=== PATIENT | male | born 1975 | race Asian ===

== ENCOUNTER 2018-02-03 14:24 | Inpatient (IN) | payer OTHER ==
--- NOTE | 2018-02-03 14:36 | PDOC ---
Rapid Medical Evaluation Time Seen by Provider: 02/03/18 14:30 Medical Evaluation: 02/03/18 14:30 I have performed a brief in-person evaluation of this patient. The patient presents with a chief complaint of: sent to ed for further evaluation after cervical spine disc abnormality on MRI Pertinent physical exam findings: NAD even and unlabored breathing +tenderness in mid cervical spine I have ordered the following: labs, iv access, took analgesia at 8m The patient will proceed to the ED for further evaluation.
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
[2018-02-03 15:36] LABS: BASO % 0.6 % (0-2.0); HEMATOCRIT 37.7 % (35.4-49); HEMOGLOBIN 11.9 GM/dL (11.7-16.9); LYMPH % 16.3 % (8-40); MCHC 31.6 g/dl (32.0-35.9); MEAN CELL VOLUME 59.7 fl (80-96); MEAN PLT VOLUME 8.7 fl (7.5-11.1); MONO % 4.1 % (3.8-10.2); PLATELET COUNT 263 K/MM3 (134-434); RBC 6.31 M/mm3 (4.00-5.60); RDW 14.8 % (11.9-15.9); WHITE BLOOD COUNT 14.7 K/mm3 (4.0-10.0)
[2018-02-03 15:43] LABS: MCH 18.9 pg (25.7-33.7)
[2018-02-03 15:50] LABS: INR 1.04 (0.82-1.09); PROTHROMBIN TIME (PATIENT) 11.7 SEC (9.7-13.0)
[2018-02-03 15:53] LABS: ACTIVATED PTT 27.1 SECONDS (26.9-34.4)
[2018-02-03 15:54] LABS: ALBUMIN 4.2 g/dl (3.4-5.0); ANION GAP 9 (8-16); CALCIUM 9.1 mg/dL (8.5-10.1); CHLORIDE 106 mmol/L (98-107); CO2 25 mmol/L (21-32); GLUCOSE,RANDOM 92 mg/dL (74-106); SODIUM 140 mmol/L (136-145)
[2018-02-03 15:59] LABS: ALK PHOS 60 U/L (45-117); BILIRUBIN,TOTAL 0.7 mg/dL (0.2-1.0); BLOOD UREA NITROGEN 20 mg/dL (7-18); CREATININE 1.2 mg/dL (0.7-1.3); SGOT/AST 16 U/L (15-37); SGPT/ALT 40 U/L (12-78)
--- NOTE | 2018-02-03 16:28 | EKG ---
Test Reason : Blood Pressure : / mmHG Vent. Rate : 101 BPM Atrial Rate : 101 BPM P-R Int : 152 ms QRS Dur : 090 ms QT Int : 346 ms P-R-T Axes : 036 -13 005 degrees QTc Int : 448 ms SINUS TACHYCARDIA POSSIBLE LEFT ATRIAL ENLARGEMENT LEFT VENTRICULAR HYPERTROPHY ABNORMAL ECG NO PREVIOUS ECGS AVAILABLE Confirmed by MADDY GOMES, CRISTINE ([id number]) on 02/03/2018 4:27:47 PM Referred By: Confirmed By:CRISTINE CASTAÑEDA MD
--- NOTE | 2018-02-03 16:30 | PDOC ---
Attending Attestation - Resident Resident Name: Timmy Bagley - ED Attending Attestation I have performed the following: I have examined & evaluated the patient, The case was reviewed & discussed with the resident, I agree w/resident's findings & plan - HPI HPI: 02/03/18 16:28 42y/o M diagnosed with cervical disc disease on outpatient imaging p/w worsening pain and weakness to L side. - Physicial Exam PE: 02/03/18 16:28 VSS, tachy 2/2 pain but ambulating in ED neuro exam as noted vascular intact - Medical Decision Making 02/03/18 16:29 42y/o M with intractable pain and intermittent weakness 2/2 known cervical disc disease. labs, pain control seen in ED with Dr. Marks of [facility] at bedside, who has reviewed prior imaging. will proceed with admission for OR Heart Score/ECG Review #1 General ECG Interpretation: Sinus Rhythm, Normal Rate (101), Normal Intervals ( qtc 448), No acute ischemic changes
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
[2018-02-03] MEDS ORDERED: morphine SULFATE 4 MG/ML VIAL IVPUSH PRN ×4 (18:22→18:38)
[2018-02-03] MEDS ORDERED: diazePAM 2 MG TABLET PO PRN (18:22)
[2018-02-03] MEDS ORDERED: ACETAMINOPHEN 325 MG TABLET (FP) PO PRN (18:42)
[2018-02-03 18:50] LABS: ANISOCYTOSIS 2+
[2018-02-03 18:51] LABS: PLATELET ESTIMATE ADEQUATE; TARGET CELLS FEW
[2018-02-03] MEDS ORDERED: morphine SULFATE 4 MG/ML VIAL ONE (18:59)
--- NOTE | 2018-02-03 19:13 | HP ---
CHIEF COMPLAINT: Neck, left arm, left leg pain and weakness PCP: [facility] HISTORY OF PRESENT ILLNESS: Pt is a 42 y/o M who presents to the ED sent by Vee for pain and weakness of the neck, LUE, LLE. Pt describes 3 weeks of worsening symptoms. Pt describes burning, tingling, numbness in LUE and LLE as well as weakness in LUE. He unintentionally dropped yogurt from his left hand. He has also had neck pain and point tenderness. He was seen as an outpt by several doctors at multiple facilities and no intervention was done. He had unremarkable MRI of the brain. C-spine MRI was significant for severe foraminal stenosis of C6-C7. Pt had a steroid injection. He was given a prednisone taper. Pt continued having symptoms. Eventually, he was seen by Dr. Baxter who evaluated him and sent him to ED for admission for elective procedure. ER course was notable for: (1) WBC 14.7 (2) EKG sig for LVH and sinus tachy (3) Recent Travel: denies PAST MEDICAL HISTORY: denies PAST SURGICAL HISTORY: denies Social History: Smoking: denies Alcohol: occasional Drugs: denies Family History: denies Allergies No Known Allergies Allergy (Verified 02/03/18 14:31) HOME MEDICATIONS: Home Medications Medication Instructions Recorded Gabapentin 400 mg PO PRN PRN 02/03/18 REVIEW OF SYSTEMS CONSTITUTIONAL: Absent: fever, chills, diaphoresis, generalized weakness, malaise, loss of appetite, weight change HEENT: Absent: rhinorrhea, nasal congestion, throat pain, throat swelling, difficulty swallowing, mouth swelling, ear pain, eye pain, visual changes CARDIOVASCULAR: Absent: chest pain, syncope, palpitations, irregular heart rate, lightheadedness , peripheral edema RESPIRATORY: Absent: cough, shortness of breath, dyspnea with exertion, orthopnea, wheezing, stridor, hemoptysis GASTROINTESTINAL: Absent: abdominal pain, abdominal distension, nausea, vomiting, diarrhea, constipation, melena, hematochezia GENITOURINARY: Absent: dysuria, frequency, urgency, hesitancy, hematuria, flank pain, genital pain MUSCULOSKELETAL: Absent: myalgia, arthralgia, joint swelling, back pain, neck pain SKIN: Absent: rash, itching, pallor HEMATOLOGIC/IMMUNOLOGIC: Absent: easy bleeding, easy bruising, lymphadenopathy, frequent infections ENDOCRINE: Absent: unexplained weight gain, unexplained weight loss, heat intolerance, cold intolerance NEUROLOGIC: focal weakness or paresthesias LUE, LLE Absent: headache, dizziness, unsteady gait, seizure, mental status changes, bladder or bowel incontinence PSYCHIATRIC: Absent: anxiety, depression, suicidal or homicidal ideation, hallucinations. PHYSICAL EXAMINATION Vital Signs - 24 hr 02/03/18 02/03/18 14:31 17:36 Temperature 98.6 F 98.0 F Pulse Rate 120 H 118 H Respiratory 19 19 Rate Blood Pressure 166/105 152/100 O2 Sat by Pulse 100 Oximetry (%) GENERAL: Awake, alert, and fully oriented, in no acute distress. HEAD: Normal with no signs of trauma. EYES: Pupils equal, round and reactive to light, extraocular movements intact, sclera anicteric, conjunctiva clear. No lid lag. EARS, NOSE, THROAT: oropharynx clear without exudates. Moist mucous membranes. NECK: ROM limited by pain. Point tenderness of C-spine through T3, supple without lymphadenopathy, JVD, or masses. LUNGS: Breath sounds equal, clear to auscultation bilaterally. No wheezes, and no crackles. No accessory muscle use. HEART: Regular rate and rhythm, normal S1 and S2 without murmur, rub or gallop. ABDOMEN: Soft, nontender, not distended, normoactive bowel sounds, no guarding, no rebound, no masses. No hepatomegaly or splenomegaly. MUSCULOSKELETAL: range of motion limited by pain. No bony deformities or tenderness. No CVA tenderness. UPPER EXTREMITIES: 2+ pulses, warm, well-perfused. No cyanosis. No clubbing. No peripheral edema. LOWER EXTREMITIES: 2+ pulses, warm, well-perfused. No calf tenderness. No peripheral edema. NEUROLOGICAL: Cranial nerves II-XII intact. Normal speech. alterered sensation of LUE, LLE. Strength 4/5 LUE, LLE. 5/5 RUE, RLE. Reflexes intact. PSYCHIATRIC: Cooperative. Good eye contact. Appropriate mood and affect. SKIN: Warm, dry, normal turgor, no rashes or lesions noted, normal capillary refill. Laboratory Results - last 24 hr 02/03/18 02/03/18 02/03/18 14:54 14:54 14:54 WBC 14.7 H RBC 6.31 H Hgb 11.9 Hct 37.7 MCV 59.7 L MCH 18.9 L MCHC 31.6 L RDW 14.8 Plt Count 263 MPV 8.7 Neutrophils % 79.0 Lymphocytes % 16.3 Monocytes % 4.1 Eosinophils % 0.0 Basophils % 0.6 Nucleated RBC % 0 PT with INR 11.70 INR 1.04 PTT (Actin FS) 27.1 Sodium 140 Potassium 4.0 Chloride 106 Carbon Dioxide 25 Anion Gap 9 BUN 20 H Creatinine 1.2 Creat Clearance w eGFR > 60 Random Glucose 92 Calcium 9.1 Total Bilirubin 0.7 AST 16 ALT 40 Alkaline Phosphatase 60 Total Protein 8.0 Albumin 4.2 Blood Type Antibody Screen 02/03/18 15:20 WBC RBC Hgb Hct MCV MCH MCHC RDW Plt Count MPV Neutrophils % Lymphocytes % Monocytes % Eosinophils % Basophils % Nucleated RBC % PT with INR INR PTT (Actin FS) Sodium Potassium Chloride Carbon Dioxide Anion Gap BUN Creatinine Creat Clearance w eGFR Random Glucose Calcium Total Bilirubin AST ALT Alkaline Phosphatase Total Protein Albumin Blood Type O POSITIVE Antibody Screen Negative ASSESSMENT/PLAN: Pt is a 42 y/o M with no PMH who presents with sympomatic cervical spinal stenosis diagnosed on out pt MRI. #Spinal stenosis -for surgery tomorrow -NPO after midnight -CBC, CMP, CXR -Valium, Morphine, Prednisone taper -Cont amytriptiline #FEN -NS @ 100 -lytes wnl -NPO after midnight #PPx -hold Hep in anticipation of surgery #Dispo -For surg tomorrow Anuj Nelson MD PGY-1 IM Visit type - Emergency Visit Emergency Visit: Yes ED Registration Date: 02/03/18 Care time: The patient presented to the Emergency Department on the above date and was hospitalized for further evaluation of their emergent condition. - New Patient This patient is new to me today: Yes Date on this admission: 02/03/18 - Critical Care Critical Care patient: No Hospitalist Screening - Colonoscopy Questionnaire Colonoscopy Questionnaire: Colonoscopy Questionnaire - Patient: 50 - 75 years old and never had a screening colonoscopy: Unknown History of colon or rectal polyps, or CA: Unknown History of IBD, Crohn's disease or UC: Unknown History of abdominal radiation therapy as a child: Unknown - Relative: 1 with colon or rectal CA, or polyps at age 60 or younger: Unknown Colon or rectal CA diagnosed at age 45 or younger: Unknown Multiple relatives with colon or rectal CA: Unknown - Outcome: Screening Result: Negative Screen
[2018-02-03] MEDS ORDERED: HEPARIN NA (PORCINE) 5,000 UNITS/ML 1ML VIAL SQ SCH (22:00)
[2018-02-03] MEDS ORDERED: AMITRIPTYLINE HCL 25 MG TABLET (FP) PO SCH (22:00)
[2018-02-03] MEDS: predniSONE 10 MG TABLET (UD) PO SCH (22:40)
[2018-02-03 23:51] VITALS: BMI 26.2
[2018-02-04] MEDS ORDERED: SODIUM CHLORIDE 1,000 ML IV SCH (00:01)
[2018-02-04] MEDS ORDERED: CHLORHEXIDINE GLUCONATE 4% CLEANSER FOR DECOLONIZATION TP ONE (07:00)
[2018-02-04 07:51] LABS: BASO % 0.5 % (0-2.0); EOS % 0.2 % (0-4.5); HEMATOCRIT 37.1 % (35.4-49); HEMOGLOBIN 11.7 GM/dL (11.7-16.9); LYMPH % 18.3 % (8-40); MCHC 31.5 g/dl (32.0-35.9); MEAN CELL VOLUME 59.8 fl (80-96); MEAN PLT VOLUME 8.9 fl (7.5-11.1); MONO % 5.3 % (3.8-10.2); NEUT % 75.7 % (42.8-82.8); PLATELET COUNT 240 K/MM3 (134-434); RBC 6.21 M/mm3 (4.00-5.60); RDW 14.8 % (11.9-15.9); WHITE BLOOD COUNT 11.5 K/mm3 (4.0-10.0)
[2018-02-04 07:57] LABS: MCH 18.8 pg (25.7-33.7)
[2018-02-04 08:04] LABS: ACTIVATED PTT 28.2 SECONDS (26.9-34.4); INR 1.09 (0.82-1.09); PROTHROMBIN TIME (PATIENT) 12.3 SEC (9.7-13.0)
[2018-02-04 08:13] LABS: ALBUMIN 3.8 g/dl (3.4-5.0); ANION GAP 7 (8-16); BILIRUBIN,TOTAL 0.6 mg/dL (0.2-1.0); BLOOD UREA NITROGEN 21 mg/dL (7-18); CHLORIDE 106 mmol/L (98-107); CO2 25 mmol/L (21-32); GLUCOSE,RANDOM 85 mg/dL (74-106); MAGNESIUM 2.2 mg/dL (1.8-2.4); PHOSPHOROUS 3.3 mg/dL (2.5-4.9); POTASSIUM 4.1 mmol/L (3.5-5.1); SGOT/AST 13 U/L (15-37); SGPT/ALT 33 U/L (12-78); SODIUM 138 mmol/L (136-145); TOT PROT 7.2 g/dl (6.4-8.2)
[2018-02-04 08:14] LABS: ALK PHOS 54 U/L (45-117); CALCIUM 8.5 mg/dL (8.5-10.1)
[2018-02-04] MEDS: predniSONE 10 MG TABLET (UD) PO SCH ×2 (08:40→09:24)
[2018-02-04] MEDS ORDERED: GENTAMICIN SO4 80 MG/2 ML VIAL ONE (10:04)
[2018-02-04] MEDS ORDERED: THROMBIN (BOVINE) 20,000 UNIT VIAL TP ONE (10:04)
[2018-02-04] MEDS ORDERED: BUPIVACAINE HCL/PF 0.5% (5MG/ML) 10 ML VIAL ONE (10:13)
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
[2018-02-04] MEDS ORDERED: MIDAZOLAM HCL 2 MG/2 ML SINGLE DOSE VIAL ONE ×2 (10:33→12:29)
[2018-02-04] MEDS ORDERED: PROPOFOL 20 ML ONE (10:34)
[2018-02-04] MEDS ORDERED: ROCURONIUM BROMIDE 50 MG/5 ML VIAL ONE (10:34)
[2018-02-04] MEDS ORDERED: DEXAMETHASONE SOD PHOSPHATE 4 MG/1 ML VIAL ONE (10:50)
[2018-02-04] MEDS ORDERED: ONDANSETRON 4 MG/2 ML VIAL ONE (10:50)
[2018-02-04] MEDS ORDERED: SODIUM CHLORIDE 0.9% P/F 10 ML VIAL IJ ONE ×2 (10:58→11:00)
[2018-02-04] MEDS ORDERED: ceFAZolin SODIUM 1 GM VIAL ONE ×2 (10:58→17:53)
[2018-02-04] MEDS ORDERED: ceFAZolin SODIUM 1 GM VIAL IVPB ONE (10:59)
[2018-02-04] MEDS ORDERED: VANCOMYCIN 1,000 MG VIAL (RESTRICTED TO ID ONLY) ONE (11:00)
[2018-02-04] MEDS ORDERED: VANCOMYCIN 1,000 MG VIAL (RESTRICTED TO ID ONLY) IVPB ONE (11:02)
[2018-02-04] MEDS ORDERED: LIDOCAINE HCL 1%, 10 MG/ML (50 mL VIAL) IJ ONE (11:08)
[2018-02-04] MEDS ORDERED: NEOSTIGMINE METHYLSULFATE 0.5 MG/ML - 10 ML MDV ONE (11:59)
[2018-02-04] MEDS ORDERED: GLYCOPYRROLATE 0.2 MG/1 ML VIAL ONE (11:59)
[2018-02-04] MEDS ORDERED: LIDOCAINE HCL/PF 2% SDV 5ML VIAL ONE (12:09)
[2018-02-04] MEDS ORDERED: ACETAMINOPHEN INJECTION 100 ML IVPB ONE (12:18)
[2018-02-04] MEDS ORDERED: METOPROLOL TARTRATE 5 MG/5 ML VIAL ONE (12:27)
[2018-02-04] MEDS ORDERED: ONDANSETRON 4 MG/2 ML VIAL IVPUSH PRN ×3 (12:34→22:19)
[2018-02-04] MEDS ORDERED: LACTATED RINGERS SOLUTION 1,000 ML IV SCH ×2 (12:45→13:00)
--- NOTE | 2018-02-04 12:50 | OP ---
Operative Note - Note: Operative Date: 02/04/18 Pre-Operative Diagnosis: Cervical radiculopathy, myelopathic Operation: C5/6 corpectomy, decompression, fusion Post-Operative Diagnosis: Same as Pre-op Surgeon: Jay Baxter Medical Officer Psychiatry: Alberto Ramos Anesthesiologist/TUNNEL ELASTIC OPERATOR LOCKSTITCH: Rigoberto Moss Anesthesia: General Estimated Blood Loss (mls): 50 Drains & Tubes with Location: YESI Drains, Volume Out (mls): 500 (decker ) Fluid Volume Replaced (mls): 500 Operative Report Dictated: Yes
[2018-02-04] MEDS ORDERED: NALOXONE HCL 0.4 MG/ML VIAL ONE (12:51)
--- NOTE | 2018-02-04 12:51 | SURG ---
Surgery Moss Picker Note Moss Picker: Alberto Ramos PA-C Date of Service: 02/04/18 Diagnosis: Cervical radiculopathy, meylopathic Procedure: C5/6 corpectomy, decompression, fusion I was present for the entirety of the operative procedure. For further detail, please refer to operative report. Visit type - Case Type Case Type: ED Admission - New patient This patient is new to me today: Yes Date on this admission: 02/04/18
[2018-02-04] MEDS ORDERED: GABAPENTIN 400 MG CAPSULE (FP) PO PRN (12:53)
[2018-02-04] MEDS ORDERED: NALOXONE HCL 0.4 MG/ML VIAL IVPUSH ONE (13:00)
[2018-02-04] MEDS ORDERED: morphine SULFATE 4 MG/ML VIAL IVPUSH PRN (14:15)
[2018-02-04] MEDS ORDERED: diazePAM 2 MG TABLET PO PRN (14:15)
--- NOTE | 2018-02-04 15:43 | PN ---
Teaching Attending Note Name of Resident: Anuj Nelson ATTENDING PHYSICIAN STATEMENT I saw and evaluated the patient. I reviewed the resident's note and discussed the case with the resident. I agree with the resident's findings and plan as documented with exceptions below. SUBJECTIVE: Patient seen and examined. in PACU, anxious, asking to remove his C-collar,c/o pain at surgical site. OBJECTIVE: Vital Signs Period Temp Pulse Resp BP Sys/Dang Pulse Ox Last 24 Hr 97.5 F-98.3 F 70-118 8-20 123-152/74-100 94-100 Intake & Output 02/01/18 02/02/18 02/03/18 02/04/18 23:59 23:59 23:59 23:59 Intake Total 200 1000 Output Total 550 Balance 200 450 Weight 162 lb 4 oz General; anxious but no acute distress in bed Neck: C-collar Neuro: moves all extremities freely but declines full exam as 'tired'. Home Medication List Medication Instructions Recorded Confirmed Type Gabapentin 400 mg PO PRN PRN 02/03/18 02/03/18 History Active Medications Generic Name Dose Route Start Last Admin Trade Name Freq PRN Reason Stop Dose Admin Acetaminophen 650 mg 02/04/18 14:15 Tylenol - PO Q6H PRN PAIN LEVEL 1 - 3 Amitriptyline HCl 50 mg 02/04/18 22:00 Elavil - PO HS ESTEFANI Diazepam 2 mg 02/04/18 14:15 Valium - PO Q8H PRN ANXIETY Fentanyl 50 mcg 02/04/18 14:15 02/04/18 14:15 Sublimaze Injection - IVPUSH 50 mcg [id number] PRN Administration PAIN-PACU ORDER X 4 DOSES ONLY Gabapentin 400 mg 02/04/18 12:53 Neurontin - PO PRN PRN PAIN Cefazolin Sodium 1 gm/ 50 mls @ 100 mls/hr 02/04/18 18:00 Dextrose IVPB 02/05/18 02:29 Q8H-IV ESTEFANI Lactated Ringer's 1,000 mls @ 125 mls/hr 02/04/18 13:00 Lactated Ringers Solution IV ASDIR ESTEFANI Sodium Chloride 1,000 mls @ 100 mls/hr 02/04/18 14:15 Normal Saline - IV ASDIR ESTEFANI Morphine Sulfate 2 mg 02/04/18 14:15 Morphine Sulfate IVPUSH Q4H PRN PAIN LEVEL 4 - 6 Morphine Sulfate 4 mg 02/04/18 14:15 Morphine Sulfate IVPUSH Q4H PRN PAIN LEVEL 7-10 Ondansetron HCl 4 mg 02/04/18 14:15 02/04/18 14:10 Zofran Injection IVPUSH 4 mg Q6H PRN Administration NAUSEA AND/OR VOMITING Laboratory Results - last 24 hr 02/03/18 02/03/18 02/03/18 14:54 14:54 14:54 WBC 14.7 H RBC 6.31 H Hgb 11.9 Hct 37.7 MCV 59.7 L MCH 18.9 L MCHC 31.6 L RDW 14.8 Plt Count 263 MPV 8.7 Neutrophils % 79.0 Lymphocytes % 16.3 Monocytes % 4.1 Eosinophils % 0.0 Basophils % 0.6 Nucleated RBC % 0 Hypochromia 2+ Platelet Estimate Adequate Anisocytosis 2+ Target Cells Few PT with INR 11.70 INR 1.04 PTT (Actin FS) 27.1 Sodium 140 Potassium 4.0 Chloride 106 Carbon Dioxide 25 Anion Gap 9 BUN 20 H Creatinine 1.2 Creat Clearance w eGFR > 60 Random Glucose 92 Calcium 9.1 Phosphorus Magnesium Total Bilirubin 0.7 AST 16 ALT 40 Alkaline Phosphatase 60 Total Protein 8.0 Albumin 4.2 Blood Type Antibody Screen 02/03/18 02/04/18 02/04/18 15:20 06:30 06:30 WBC 11.5 H RBC 6.21 H Hgb 11.7 Hct 37.1 MCV 59.8 L MCH 18.8 L MCHC 31.5 L RDW 14.8 Plt Count 240 MPV 8.9 Neutrophils % 75.7 Lymphocytes % 18.3 Monocytes % 5.3 Eosinophils % 0.2 D Basophils % 0.5 Nucleated RBC % 0 Hypochromia Platelet Estimate Anisocytosis Target Cells PT with INR 12.30 INR 1.09 PTT (Actin FS) 28.2 Sodium Potassium Chloride Carbon Dioxide Anion Gap BUN Creatinine Creat Clearance w eGFR Random Glucose Calcium Phosphorus Magnesium Total Bilirubin AST ALT Alkaline Phosphatase Total Protein Albumin Blood Type O POSITIVE Antibody Screen Negative 02/04/18 06:30 WBC RBC Hgb Hct MCV MCH MCHC RDW Plt Count MPV Neutrophils % Lymphocytes % Monocytes % Eosinophils % Basophils % Nucleated RBC % Hypochromia Platelet Estimate Anisocytosis Target Cells PT with INR INR PTT (Actin FS) Sodium 138 Potassium 4.1 Chloride 106 Carbon Dioxide 25 Anion Gap 7 L BUN 21 H Creatinine 1.0 Creat Clearance w eGFR > 60 Random Glucose 85 Calcium 8.5 Phosphorus 3.3 Magnesium 2.2 Total Bilirubin 0.6 AST 13 L ALT 33 Alkaline Phosphatase 54 Total Protein 7.2 Albumin 3.8 Blood Type Antibody Screen ASSESSMENT AND PLAN: 42 yom with no significant PMHx here with Cervical radiculopathy s/p C5/6 corpectomy, decompression, fusion 02/04 -Cervical radiculopathy C5/6 corpectomy, decompression, fusion 02/04/2018 -Uncontrolled HTN, likely pain response and severe anxiety -Anxiety Plan: S/p C5/6 corpectomy, decompression, fusion today. Pain control, valium. D/c prednisone. Activity, PO, PT eval and DVTPPx per surgery. Plan discussed with patient.
--- NOTE | 2018-02-04 16:07 | PN ---
Physical Exam: SUBJECTIVE: Patient seen and examined at bedside. Pt was feeling about the same as yesterday. OBJECTIVE: Vital Signs Period Temp Pulse Resp BP Sys/Dang Pulse Ox Last 24 Hr 97.5 F-98.3 F 70-118 8-20 123-152/74-100 94-100 Exam unchanged from yesterday GENERAL: Awake, alert, and fully oriented, in no acute distress. HEAD: Normal with no signs of trauma. EYES: Pupils equal, round and reactive to light, extraocular movements intact, sclera anicteric, conjunctiva clear. No lid lag. EARS, NOSE, THROAT: oropharynx clear without exudates. Moist mucous membranes. NECK: ROM limited by pain. Point tenderness of C-spine through T3, supple without lymphadenopathy, JVD, or masses. LUNGS: Breath sounds equal, clear to auscultation bilaterally. No wheezes, and no crackles. No accessory muscle use. HEART: Regular rate and rhythm, normal S1 and S2 without murmur, rub or gallop. ABDOMEN: Soft, nontender, not distended, normoactive bowel sounds, no guarding, no rebound, no masses. No hepatomegaly or splenomegaly. MUSCULOSKELETAL: range of motion limited by pain. No bony deformities or tenderness. No CVA tenderness. UPPER EXTREMITIES: 2+ pulses, warm, well-perfused. No cyanosis. No clubbing. No peripheral edema. LOWER EXTREMITIES: 2+ pulses, warm, well-perfused. No calf tenderness. No peripheral edema. NEUROLOGICAL: Cranial nerves II-XII intact. Normal speech. alterered sensation of LUE, LLE. Strength 4/5 LUE, LLE. 5/5 RUE, RLE. Reflexes intact. PSYCHIATRIC: Cooperative. Good eye contact. Appropriate mood and affect. SKIN: Warm, dry, normal turgor, no rashes or lesions noted, normal capillary refill. Laboratory Results - last 24 hr 02/03/18 02/03/18 02/03/18 14:54 14:54 15:20 WBC RBC Hgb Hct MCV MCH MCHC RDW Plt Count MPV Neutrophils % Lymphocytes % Monocytes % Eosinophils % Basophils % Nucleated RBC % Hypochromia 2+ Platelet Estimate Adequate Anisocytosis 2+ Target Cells Few PT with INR 11.70 INR 1.04 PTT (Actin FS) 27.1 Sodium Potassium Chloride Carbon Dioxide Anion Gap BUN Creatinine Creat Clearance w eGFR Random Glucose Calcium Phosphorus Magnesium Total Bilirubin AST ALT Alkaline Phosphatase Total Protein Albumin Blood Type O POSITIVE Antibody Screen Negative 02/04/18 02/04/18 02/04/18 06:30 06:30 06:30 WBC 11.5 H RBC 6.21 H Hgb 11.7 Hct 37.1 MCV 59.8 L MCH 18.8 L MCHC 31.5 L RDW 14.8 Plt Count 240 MPV 8.9 Neutrophils % 75.7 Lymphocytes % 18.3 Monocytes % 5.3 Eosinophils % 0.2 D Basophils % 0.5 Nucleated RBC % 0 Hypochromia Platelet Estimate Anisocytosis Target Cells PT with INR 12.30 INR 1.09 PTT (Actin FS) 28.2 Sodium 138 Potassium 4.1 Chloride 106 Carbon Dioxide 25 Anion Gap 7 L BUN 21 H Creatinine 1.0 Creat Clearance w eGFR > 60 Random Glucose 85 Calcium 8.5 Phosphorus 3.3 Magnesium 2.2 Total Bilirubin 0.6 AST 13 L ALT 33 Alkaline Phosphatase 54 Total Protein 7.2 Albumin 3.8 Blood Type Antibody Screen Active Medications Generic Name Dose Route Start Last Admin Trade Name Freq PRN Reason Stop Dose Admin Acetaminophen 650 mg 02/04/18 14:15 Tylenol - PO Q6H PRN PAIN LEVEL 1 - 3 Amitriptyline HCl 50 mg 02/04/18 22:00 Elavil - PO HS ESTEFANI Diazepam 2 mg 02/04/18 14:15 Valium - PO Q8H PRN ANXIETY Fentanyl 50 mcg 02/04/18 14:15 02/04/18 14:15 Sublimaze Injection - IVPUSH 50 mcg [id number] PRN Administration PAIN-PACU ORDER X 4 DOSES ONLY Gabapentin 400 mg 02/04/18 12:53 Neurontin - PO PRN PRN PAIN Cefazolin Sodium 1 gm/ 50 mls @ 100 mls/hr 02/04/18 18:00 Dextrose IVPB 02/05/18 02:29 Q8H-IV ESTEFANI Lactated Ringer's 1,000 mls @ 125 mls/hr 02/04/18 13:00 Lactated Ringers Solution IV ASDIR ESTEFANI Sodium Chloride 1,000 mls @ 100 mls/hr 02/04/18 14:15 Normal Saline - IV ASDIR ESTEFANI Morphine Sulfate 2 mg 02/04/18 14:15 Morphine Sulfate IVPUSH Q4H PRN PAIN LEVEL 4 - 6 Morphine Sulfate 4 mg 02/04/18 14:15 Morphine Sulfate IVPUSH Q4H PRN PAIN LEVEL 7-10 Ondansetron HCl 4 mg 02/04/18 14:15 02/04/18 14:10 Zofran Injection IVPUSH 4 mg Q6H PRN Administration NAUSEA AND/OR VOMITING ASSESSMENT/PLAN: Pt is a 42 y/o M with no PMH who presents with sympomatic cervical spinal stenosis diagnosed on out pt MRI. #Spinal stenosis -for surgery today -NPO until surg -CBC, CMP, CXR -Valium, Morphine, Prednisone taper -Cont amytriptiline #FEN -NS @ 100 -lytes wnl -NPO #PPx -hold Hep in anticipation of surgery #Dispo -For surg tomorrow Anuj Nelson MD PGY-1 IM Visit type - Emergency Visit Emergency Visit: No - New Patient This patient is new to me today: No - Critical Care Critical Care patient: No - Discharge Referral Referred to [facility] Med P.C.: No
[2018-02-04] MEDS: morphine SULFATE 4 MG/ML VIAL IVPUSH PRN ×2 (16:26→22:22)
[2018-02-04] MEDS: SODIUM CHLORIDE 1,000 ML IV SCH (16:32)
[2018-02-04] MEDS ORDERED: DEXTROSE 5%-WATER - 50 ML IVPB ONE (17:53)
[2018-02-04] MEDS: CEFAZOLIN 1 GM in DEXTROSE 5%-WATER - 50 ML IVPB SCH (17:58)
[2018-02-04] MEDS ORDERED: predniSONE 10 MG TABLET (UD) PO SCH (22:00)
[2018-02-04] MEDS ORDERED: HEPARIN NA (PORCINE) 5,000 UNITS/ML 1ML VIAL SQ SCH (22:00)
[2018-02-04] MEDS: GABAPENTIN 400 MG CAPSULE (FP) PO SCH (22:02)
[2018-02-04] MEDS: HEPARIN NA (PORCINE) 5,000 UNITS/ML 1ML VIAL SQ SCH (22:04)
[2018-02-04] MEDS: AMITRIPTYLINE HCL 25 MG TABLET (FP) PO SCH (22:20)
[2018-02-05] MEDS ORDERED: ceFAZolin SODIUM 1 GM VIAL ONE (00:13)
[2018-02-05] MEDS ORDERED: DEXTROSE 5%-WATER - 50 ML IVPB ONE (00:13)
[2018-02-05] MEDS: SODIUM CHLORIDE 1,000 ML IV SCH (00:32)
[2018-02-05] MEDS: CEFAZOLIN 1 GM in DEXTROSE 5%-WATER - 50 ML IVPB SCH (01:20)
[2018-02-05] MEDS: HEPARIN NA (PORCINE) 5,000 UNITS/ML 1ML VIAL SQ SCH ×3 (05:50→21:11)
[2018-02-05] MEDS: GABAPENTIN 400 MG CAPSULE (FP) PO SCH ×3 (05:50→21:11)
--- NOTE | 2018-02-05 07:32 | PN ---
Physical Exam: SUBJECTIVE: Patient seen and examined. Had surgery- cervical corpectomy yesterday. Had not eaten by this am. Getting iv pain meds. C/o of sorethroat. Reports improved tingling on L side OBJECTIVE: Vital Signs Period Temp Pulse Resp BP Sys/Dang Pulse Ox Last 24 Hr 97.5 F-98.8 F 70-110 8-20 98-162/74-97 94-100 Vital Signs Temp 98.4 F 02/05/18 08:58 Pulse 112 H 02/05/18 08:58 Resp 20 02/05/18 09:00 BP 147/90 02/05/18 08:58 Pulse Ox 100 02/05/18 09:00 Intake & Output 02/04/18 02/05/18 02/05/18 23:59 11:59 23:59 Intake Total 850 1150 358 Output Total 95 1165 Balance 755 -15 358 Intake: IV 800 1100 Normal Saline - 1,000 ml 300 1100 @ 100 mls/hr IV ASDIR ESTEFANI Rx#:[id number] IVPB 50 50 Oral 358 Output: Drainage 95 65 Right Neck 95 65 Urine 0 1100 Void 0 1100 Other: Voiding Method Urinal Toilet Urinal # Unmeasured Voids Void 1 Bowel Movement No No GENERAL: The patient is awake, alert, and fully oriented, cervical collar in place. NECK: cervical collar in place with R YESI drain, draining serous fluid. Neck supple. LUNGS: Breath sounds equal, clear to auscultation bilaterally, no wheezes, no crackles, no accessory muscle use. HEART: Regular rate and rhythm, S1, S2 ABDOMEN: Soft, nontender, nondistended, normoactive bowel sounds EXTREMITIES: 2+ pulses, warm, well-perfused, no edema. NEUROLOGICAL: Cranial nerves II through XII grossly intact. Mildly reduced LUE and RUE.Muscle strength 5/5 RUE and RLE, muscle strength on L4+/5 UE and LE Laboratory Results - last 24 hr 02/04/18 02/04/18 02/04/18 06:30 06:30 06:30 WBC 11.5 H RBC 6.21 H Hgb 11.7 Hct 37.1 MCV 59.8 L MCH 18.8 L MCHC 31.5 L RDW 14.8 Plt Count 240 MPV 8.9 Neutrophils % 75.7 Lymphocytes % 18.3 Monocytes % 5.3 Eosinophils % 0.2 D Basophils % 0.5 Nucleated RBC % 0 PT with INR 12.30 INR 1.09 PTT (Actin FS) 28.2 Sodium 138 Potassium 4.1 Chloride 106 Carbon Dioxide 25 Anion Gap 7 L BUN 21 H Creatinine 1.0 Creat Clearance w eGFR > 60 Random Glucose 85 Calcium 8.5 Phosphorus 3.3 Magnesium 2.2 Total Bilirubin 0.6 AST 13 L ALT 33 Alkaline Phosphatase 54 Total Protein 7.2 Albumin 3.8 Active Medications Generic Name Dose Route Start Last Admin Trade Name Freq PRN Reason Stop Dose Admin Acetaminophen 650 mg 02/04/18 14:15 Tylenol - PO Q6H PRN PAIN LEVEL 1 - 3 Amitriptyline HCl 50 mg 02/04/18 22:00 02/04/18 22:20 Elavil - PO 50 mg HS ESTEFANI Administration Diazepam 2 mg 02/04/18 14:15 02/04/18 22:04 Valium - PO 2 mg Q8H PRN Administration ANXIETY Gabapentin 400 mg 02/04/18 22:00 02/05/18 05:50 Neurontin - PO 400 mg TID ESTEFANI Administration Heparin Sodium (Porcine) 5,000 unit 02/04/18 16:30 02/05/18 05:50 Heparin - SQ 5,000 unit TID ESTEFANI Administration Sodium Chloride 1,000 mls @ 100 mls/hr 02/04/18 14:15 02/05/18 00:32 Normal Saline - IV 100 mls/hr ASDIR ESTEFANI Administration Morphine Sulfate 2 mg 02/04/18 14:15 Morphine Sulfate IVPUSH Q4H PRN PAIN LEVEL 4 - 6 Morphine Sulfate 4 mg 02/04/18 14:15 02/04/18 22:22 Morphine Sulfate IVPUSH 4 mg Q4H PRN Administration PAIN LEVEL 7-10 Ondansetron HCl 4 mg 02/04/18 22:19 Zofran Injection IVPUSH Q6H PRN NAUSEA AND/OR VOMITING Current Medications Acetaminophen (Tylenol -) 650 mg PO Q6H PRN PRN Reason: PAIN LEVEL 1 - 3 Amitriptyline HCl (Elavil -) 50 mg PO HS ESTEFANI Last Admin: 02/04/18 22:20 Dose: 50 mg Benzocaine/Menthol (Cepacol Lozenge -) 1 each MM PRN PRN PRN Reason: SORE THROAT Diazepam (Valium -) 1 mg PO Q8H PRN PRN Reason: MUSCLE SPASMS Docusate Sodium (Colace Liquid -) 100 mg PO BID [facility] Last Admin: 02/05/18 12:10 Dose: 100 mg Gabapentin (Neurontin -) 400 mg PO TID [facility] Last Admin: 02/05/18 14:10 Dose: 400 mg Heparin Sodium (Porcine) (Heparin -) 5,000 unit SQ TID [facility] Last Admin: 02/05/18 14:11 Dose: 5,000 unit Sodium Chloride (Normal Saline -) 1,000 mls @ 100 mls/hr IV ASDIR [facility] Last Admin: 02/05/18 00:32 Dose: 100 mls/hr Ondansetron HCl (Zofran Odt -) 4 mg SL Q6H PRN PRN Reason: NAUSEA AND/OR VOMITING Last Admin: 02/05/18 12:11 Dose: 4 mg Oxycodone HCl (Roxicodone -) 2.5 mg PO Q4H PRN PRN Reason: PAIN LEVEL 4 - 6 Oxycodone HCl (Roxicodone -) 5 mg PO Q6H PRN PRN Reason: PAIN LEVEL 7 - 10 Last Admin: 02/05/18 12:10 Dose: 5 mg Polyethylene Glycol (Miralax (For Daily Use) -) 17 gm PO DAILY PRN PRN Reason: CONSTIPATION Senna (Senna Oral Solution -) 8.8 mg PO HS [facility] ASSESSMENT/PLAN: Pt is a 42 y/o M with no PMH who presents with symptomatic cervical spinal stenosis (radiculopathy) diagnosed on out pt MRI now s/p cervical corpectomy. #Spinal radiculopathy POD1 s/p C5/6 corpectomy, decompression, fusion CBC, CMP Cont pain mx- transition to PO-oxycodone 2,5mg Q4H, 5mg Q6H Cont Valium 1mg PO Q8H Cont amytriptiline Bowel regimen- Colace 100mg bid, Senna 8.8mg HS Zofran 4mg SL Gabapentin 400mg tid Cepacol lozenge 1MMPRN Cont IVF NS @100 #PPx; Cont SubQ heparin #FEN NS Monitor Lytes Regular diet #Dispo: Med Surg Visit type - Emergency Visit Emergency Visit: Yes ED Registration Date: 02/03/18 Care time: The patient presented to the Emergency Department on the above date and was hospitalized for further evaluation of their emergent condition. - New Patient This patient is new to me today: No - Critical Care Critical Care patient: No - Discharge Referral [facility]erred to [facility] Med P.C.: No
[2018-02-05] MEDS: morphine SULFATE 4 MG/ML VIAL IVPUSH PRN (07:41)
[2018-02-05] MEDS ORDERED: oxyCODONE HCL 5 MG TABLET PO PRN (09:46)
[2018-02-05] MEDS ORDERED: POLYETHYLENE GLYCOL 3350 119 GM BTL PO PRN (09:49)
--- NOTE | 2018-02-05 09:52 | PN ---
Teaching Attending Note Name of Resident: Imelda Godinez ATTENDING PHYSICIAN STATEMENT I saw and evaluated the patient. I reviewed the resident's note and discussed the case with the resident. I agree with the resident's findings and plan as documented with exceptions below. SUBJECTIVE: Patient seen and examined. neck pain and discomfort from collar. tingling/ numbness in LUE/LLE improved. Has not been out of bed yet. OBJECTIVE: Vital Signs Period Temp Pulse Resp BP Sys/Dang Pulse Ox Last 24 Hr 97.5 F-98.8 F 70-112 8-20 98-162/74-97 94-100 Intake & Output 02/02/18 02/03/18 02/04/18 02/05/18 23:59 23:59 23:59 23:59 Intake Total 200 1850 1150 Output Total 645 535 Balance 200 1205 615 Weight 162 lb 4 oz General: lying in bed in no acute distress Neck: Cervical collar. Neuro: LUE/LLE power improved from admission. Abdomen:soft, NT, ND, positive bowel sounds Extremities: no edema Home Medication List Medication Instructions Recorded Confirmed Type Gabapentin 300 mg PO TID 02/04/18 02/04/18 History Active Medications Generic Name Dose Route Start Last Admin Trade Name Freq PRN Reason Stop Dose Admin Acetaminophen 650 mg 02/04/18 14:15 Tylenol - PO Q6H PRN PAIN LEVEL 1 - 3 Amitriptyline HCl 50 mg 02/04/18 22:00 02/04/18 22:20 Elavil - PO 50 mg HS ESTEFANI Administration Diazepam 2 mg 02/04/18 14:15 02/04/18 22:04 Valium - PO 2 mg Q8H PRN Administration ANXIETY Docusate Sodium 100 mg 02/05/18 10:00 Colace Liquid - PO BID ESTEFANI Gabapentin 400 mg 02/04/18 22:00 02/05/18 05:50 Neurontin - PO 400 mg TID ESTEFANI Administration Heparin Sodium (Porcine) 5,000 unit 02/04/18 16:30 02/05/18 05:50 Heparin - SQ 5,000 unit TID ESTEFANI Administration Sodium Chloride 1,000 mls @ 100 mls/hr 02/04/18 14:15 02/05/18 00:32 Normal Saline - IV 100 mls/hr ASDIR ESTEFANI Administration Ondansetron HCl 4 mg 02/04/18 22:19 Zofran Injection IVPUSH Q6H PRN NAUSEA AND/OR VOMITING Oxycodone HCl 2.5 mg 02/05/18 09:46 Roxicodone - PO Q4H PRN PAIN LEVEL 4 - 6 Oxycodone HCl 5 mg 02/05/18 09:46 Roxicodone - PO Q6H PRN PAIN LEVEL 7 - 10 Polyethylene Glycol 17 gm 02/05/18 09:49 Miralax (For Daily Use) - PO DAILY PRN CONSTIPATION Senna 8.8 mg 02/05/18 22:00 Senna Oral Solution - PO HS ESTEFANI ASSESSMENT AND PLAN: 42 yom with no significant PMHx here with Cervical radiculopathy s/p C5/6 corpectomy, decompression, fusion 02/04 -Cervical radiculopathy C5/6 corpectomy, decompression, fusion 02/04/2018 -Uncontrolled HTN, likely pain response and severe anxiety -Anxiety Plan: S/p C5/6 corpectomy, decompression, fusion 02/05 Discussed with claudia Moss for heparin. PT eval. Change opioids to po oxycodone Add bowel regimen. Check labs. Taper valium PT eval Plan discussed with patient in detail, encouraged OOB and incentive spiromety.
[2018-02-05 10:41] LABS: BASO % 0.6 % (0-2.0); EOS % 0.3 % (0-4.5); HEMOGLOBIN 11.2 GM/dL (11.7-16.9); LYMPH % 17.3 % (8-40); MCHC 31.2 g/dl (32.0-35.9); MEAN CELL VOLUME 59.9 fl (80-96); MEAN PLT VOLUME 7.5 fl (7.5-11.1); MONO % 4.9 % (3.8-10.2); NEUT % 76.9 % (42.8-82.8); PLATELET COUNT 219 K/MM3 (134-434); RBC 6.01 M/mm3 (4.00-5.60); RDW 14.9 % (11.9-15.9); WHITE BLOOD COUNT 13.9 K/mm3 (4.0-10.0)
[2018-02-05 10:42] LABS: MCH 18.7 pg (25.7-33.7)
[2018-02-05 11:09] LABS: ALBUMIN 3.6 g/dl (3.4-5.0); ALK PHOS 57 U/L (45-117); ANION GAP 8 (8-16); BILIRUBIN,TOTAL 0.8 mg/dL (0.2-1.0); BLOOD UREA NITROGEN 16 mg/dL (7-18); CALCIUM 8.1 mg/dL (8.5-10.1); CHLORIDE 107 mmol/L (98-107); CO2 25 mmol/L (21-32); CREATININE 1.2 mg/dL (0.7-1.3); GLUCOSE,RANDOM 103 mg/dL (74-106); POTASSIUM 3.6 mmol/L (3.5-5.1); SGOT/AST 13 U/L (15-37); SGPT/ALT 25 U/L (12-78); SODIUM 140 mmol/L (136-145); TOT PROT 7.3 g/dl (6.4-8.2)
--- NOTE | 2018-02-05 11:38 | PN ---
Progress Note (short form) - Note Progress Note: Anesthesiology Post-op 42 y.o. man POD#1 s/p cervical corpectomy under GA. Pt. is OOB in chair. He c/o pain, n/v and sore throat. He has had some relief with IV morphine and is now transitioning to PO analgesics. Nausea relieved with Zofran. VSS. 42 y.o. with stable post-operative course s/p cervical corpectomy. Continue current post-op management as per primary team. I have also added Cepacol lozenges and changed Zofran to sublingual formulation. Encourage incentive spirometry.
[2018-02-05] MEDS: oxyCODONE HCL 5 MG TABLET PO PRN ×2 (12:10→21:12)
[2018-02-05] MEDS: DOCUSATE NA 100 MG/10 ML UNIT-DOSE CUPS PO SCH ×2 (12:10→21:09)
[2018-02-05] MEDS: ONDANSETRON *ODT* 4 MG TABLET SL PRN (12:11)
[2018-02-05] MEDS: diazePAM 2 MG TABLET PO PRN (16:03)
[2018-02-05] MEDS: ACETAMINOPHEN 325 MG TABLET (FP) PO PRN (16:04)
[2018-02-05] MEDS: AMITRIPTYLINE HCL 25 MG TABLET (FP) PO SCH (21:10)
[2018-02-05] MEDS: SENNOSIDES 8.8 MG/5 ML BULK BOTTLE PO SCH (21:11)
[2018-02-06] MEDS: diazePAM 2 MG TABLET PO PRN ×2 (00:44→14:48)
[2018-02-06] MEDS: HEPARIN NA (PORCINE) 5,000 UNITS/ML 1ML VIAL SQ SCH ×3 (06:17→21:38)
[2018-02-06] MEDS: GABAPENTIN 400 MG CAPSULE (FP) PO SCH ×3 (06:17→21:38)
[2018-02-06 07:55] LABS: BASO % 0.3 % (0-2.0); EOS % 0.2 % (0-4.5); HEMATOCRIT 35.7 % (35.4-49); HEMOGLOBIN 11.3 GM/dL (11.7-16.9); LYMPH % 10.2 % (8-40); MCHC 31.5 g/dl (32.0-35.9); MEAN CELL VOLUME 60.3 fl (80-96); MEAN PLT VOLUME 7.6 fl (7.5-11.1); MONO % 6.2 % (3.8-10.2); NEUT % 83.1 % (42.8-82.8); PLATELET COUNT 209 K/MM3 (134-434); RBC 5.93 M/mm3 (4.00-5.60); RDW 14.7 % (11.9-15.9); WHITE BLOOD COUNT 16.3 K/mm3 (4.0-10.0)
[2018-02-06 08:55] LABS: CHLORIDE 102 mmol/L (98-107); POTASSIUM 3.5 mmol/L (3.5-5.1); SODIUM 139 mmol/L (136-145)
[2018-02-06 09:02] LABS: ALBUMIN 3.6 g/dl (3.4-5.0); ALK PHOS 55 U/L (45-117); ANION GAP 8 (8-16); BILIRUBIN,TOTAL 1.1 mg/dL (0.2-1.0); BLOOD UREA NITROGEN 14 mg/dL (7-18); CALCIUM 8.3 mg/dL (8.5-10.1); CO2 29 mmol/L (21-32); CREATININE 1.1 mg/dL (0.7-1.3); GLUCOSE,RANDOM 86 mg/dL (74-106); MAGNESIUM 2.6 mg/dL (1.8-2.4); PHOSPHOROUS 3.7 mg/dL (2.5-4.9); SGOT/AST 12 U/L (15-37); SGPT/ALT 20 U/L (12-78); TOT PROT 7.1 g/dl (6.4-8.2)
[2018-02-06] MEDS: ACETAMINOPHEN 325 MG TABLET (FP) PO PRN ×2 (09:46→20:36)
[2018-02-06] MEDS: DOCUSATE NA 100 MG/10 ML UNIT-DOSE CUPS PO SCH ×2 (09:46→21:39)
[2018-02-06] MEDS: oxyCODONE HCL 5 MG TABLET PO PRN ×2 (09:46→20:35)
[2018-02-06] MEDS: BENZOCAINE/MENTH/CETYLPYRD CL 1 EACH LOZENGE MM PRN ×2 (09:55→14:48)
[2018-02-06] MEDS ORDERED: ACETAMINOPHEN 325 MG TABLET (FP) PO ONE (13:15)
[2018-02-06] MEDS ORDERED: oxyCODONE HCL 5 MG TABLET PO ONE (13:15)
--- NOTE | 2018-02-06 14:22 | PN ---
Progress Note (short form) - Note Progress Note: Patient seen and examined. still with neck pain. tingling, numbness, weakness improved. Objective: Vital Signs Period Temp Pulse Resp BP Sys/Dang Pulse Ox Last 24 Hr 97.4 F-101 F 105-128 20-20 125-141/68-90 100-100 Intake & Output 02/03/18 02/04/18 02/05/18 02/06/18 23:59 23:59 23:59 23:59 Intake Total 200 1850 1908 Output Total 645 1190 4 Balance 200 1205 718 -4 Weight 162 lb 4 oz General: sitting in bed in no acute distress neck: C- collar Neuro: AAOx3, facial symmetry, left sided power improved Abdomen:Soft, NT, ND, positive bowel sounds Chest: no rales or wheezing, positive air entry. Home Medication List Medication Instructions Recorded Confirmed Type Gabapentin 300 mg PO TID 02/04/18 02/04/18 History Active Medications Generic Name Dose Route Start Last Admin Trade Name Freq PRN Reason Stop Dose Admin Acetaminophen 650 mg 02/04/18 14:15 02/06/18 09:46 Tylenol - PO 650 mg Q6H PRN Administration PAIN LEVEL 1 - 3 Acetaminophen 325 mg 02/06/18 13:14 Tylenol - PO 02/09/18 13:13 Q4H PRN PAIN 7-10 Amitriptyline HCl 50 mg 02/04/18 22:00 02/05/18 21:10 Elavil - PO 50 mg HS ESTEFANI Administration Benzocaine/Menthol 1 each 02/05/18 11:34 02/06/18 09:55 Cepacol Lozenge - MM 1 each PRN PRN Administration SORE THROAT Diazepam 1 mg 02/05/18 09:55 02/06/18 00:44 Valium - PO 1 mg Q8H PRN Administration MUSCLE SPASMS Docusate Sodium 100 mg 02/05/18 10:00 02/06/18 09:46 Colace Liquid - PO 100 mg BID ESTEFANI Administration Gabapentin 400 mg 02/04/18 22:00 02/06/18 13:24 Neurontin - PO 400 mg TID ESTEFANI Administration Heparin Sodium (Porcine) 5,000 unit 02/04/18 16:30 02/06/18 13:24 Heparin - SQ 5,000 unit TID ESTEFANI Administration Ondansetron HCl 4 mg 02/05/18 11:34 02/05/18 12:11 Zofran Odt - SL 4 mg Q6H PRN Administration NAUSEA AND/OR VOMITING Oxycodone HCl 2.5 mg 02/05/18 09:46 Roxicodone - PO Q4H PRN PAIN LEVEL 4 - 6 Oxycodone HCl 5 mg 02/06/18 13:14 Roxicodone - PO Q4H PRN PAIN 7-10 Polyethylene Glycol 17 gm 02/05/18 09:49 02/06/18 09:47 Miralax (For Daily Use) - PO 17 grams DAILY PRN Administration CONSTIPATION Senna 8.8 mg 02/05/18 22:00 02/05/18 21:11 Senna Oral Solution - PO 8.8 mg HS ESTEFANI Administration Laboratory Results - last 24 hr 02/06/18 02/06/18 06:00 06:00 WBC 16.3 H RBC 5.93 H Hgb 11.3 L Hct 35.7 MCV 60.3 L MCH 19.0 L MCHC 31.5 L RDW 14.7 Plt Count 209 MPV 7.6 Neutrophils % 83.1 H Lymphocytes % 10.2 D Monocytes % 6.2 Eosinophils % 0.2 Basophils % 0.3 Nucleated RBC % 0 Sodium 139 Potassium 3.5 Chloride 102 Carbon Dioxide 29 Anion Gap 8 BUN 14 Creatinine 1.1 Creat Clearance w eGFR > 60 Random Glucose 86 Calcium 8.3 L Phosphorus 3.7 Magnesium 2.6 H Total Bilirubin 1.1 H D AST 12 L ALT 20 Alkaline Phosphatase 55 Total Protein 7.1 Albumin 3.6 CXR today - no acute process Assessment/Plan: 42 yom with no significant PMHx here with Cervical radiculopathy s/p C5/6 corpectomy, decompression, fusion 02/04 -Cervical radiculopathy C5/6 corpectomy, decompression, fusion 02/04/2018 -SIRS, ?Atelectasis, r/o infectious process -Uncontrolled HTN, likely pain response and severe anxiety -Anxiety Plan: S/p C5/6 corpectomy, decompression, fusion 02/[address] Day today, drain removed. Pain control with oxycodone/valium. PT eval noted, plan for outpatient PT. Fevers, CXR noted. Blood cx, u/a, urine cultures. Encourage incentive spirometry and ambulation. HOld off on antibiotics for now. Bowel regimen. Dispo planning in 24 hours if no further high grade fevers and w/u neg. Plan discussed with patient in detail, encouraged OOB and incentive spiromety. Visit type - Emergency Visit Emergency Visit: No - New Patient This patient is new to me today: No - Critical Care Critical Care patient: No
[2018-02-06 17:42] LABS: URINE APPEARANCE CLEAR; URINE BILIRUBIN NEGATIVE (<2.0 mg/dL); URINE COLOR YELLOW; URINE GLUCOSE (UA) NEGATIVE (NEGATIVE); URINE KETONE NEGATIVE (NEGATIVE); URINE LEUK ESTERASE NEGATIVE (NEGATIVE); URINE NITRITE NEGATIVE (NEGATIVE); URINE PROTEIN NEGATIVE (NEGATIVE); URINE UROBILINOGEN NEGATIVE mg/dL (0.2-1.0)
[2018-02-06 17:46] LABS: URINE MUCUS RARE
[2018-02-06] MEDS ORDERED: PT OWN MED DRAWER 7, Y5N ONE (19:52)
[2018-02-06] MEDS: AMITRIPTYLINE HCL 25 MG TABLET (FP) PO SCH (21:38)
[2018-02-06] MEDS: SENNOSIDES 8.8 MG/5 ML BULK BOTTLE PO SCH (21:39)
[2018-02-07] MEDS: oxyCODONE HCL 5 MG TABLET PO PRN ×3 (02:49→15:40)
[2018-02-07] MEDS: ONDANSETRON *ODT* 4 MG TABLET SL PRN (02:53)
[2018-02-07 07:51] LABS: BASO % 0.4 % (0-2.0); EOS % 0.7 % (0-4.5); HEMATOCRIT 36.8 % (35.4-49); HEMOGLOBIN 11.7 GM/dL (11.7-16.9); LYMPH % 13.4 % (8-40); MCHC 31.8 g/dl (32.0-35.9); MEAN CELL VOLUME 60.4 fl (80-96); MEAN PLT VOLUME 8.4 fl (7.5-11.1); MONO % 6.1 % (3.8-10.2); NEUT % 79.4 % (42.8-82.8); PLATELET COUNT 233 K/MM3 (134-434); RDW 15.1 % (11.9-15.9); WHITE BLOOD COUNT 16.3 K/mm3 (4.0-10.0)
[2018-02-07 07:54] LABS: MCH 19.2 pg (25.7-33.7)
[2018-02-07 08:12] LABS: ALBUMIN 3.5 g/dl (3.4-5.0); ALK PHOS 58 U/L (45-117); ANION GAP 7 (8-16); BLOOD UREA NITROGEN 16 mg/dL (7-18); CALCIUM 8.5 mg/dL (8.5-10.1); CHLORIDE 101 mmol/L (98-107); CO2 28 mmol/L (21-32); CREATININE 1.1 mg/dL (0.7-1.3); GLUCOSE,RANDOM 98 mg/dL (74-106); MAGNESIUM 2.3 mg/dL (1.8-2.4); PHOSPHOROUS 3.3 mg/dL (2.5-4.9); POTASSIUM 3.8 mmol/L (3.5-5.1); SGOT/AST 9 U/L (15-37); SGPT/ALT 18 U/L (12-78); SODIUM 136 mmol/L (136-145); TOT PROT 7.2 g/dl (6.4-8.2)
[2018-02-07] MEDS ORDERED: PT OWN MED DRAWER 7, Y5N ONE (09:41)
[2018-02-07] MEDS: DOCUSATE NA 100 MG/10 ML UNIT-DOSE CUPS PO SCH (09:44)
[2018-02-07 09:47] LABS: ANISOCYTOSIS 2+; PLATELET ESTIMATE ADEQUATE
[2018-02-07] MEDS: ACETAMINOPHEN 325 MG TABLET (FP) PO PRN ×2 (11:10→15:41)
[2018-02-07] MEDS: BENZOCAINE/MENTH/CETYLPYRD CL 1 EACH LOZENGE MM PRN (11:12)
--- NOTE | 2018-02-07 12:37 | PN ---
Teaching Attending Note Name of Resident: Anuj Nelson ATTENDING PHYSICIAN STATEMENT I saw and evaluated the patient. I reviewed the resident's note and discussed the case with the resident. I agree with the resident's findings and plan as documented with exceptions below. SUBJECTIVE: Patient seen and examined. still with pain but better. No nausea, vomiting, abdominal pain, urinary symptoms, new cough, dyspnea or concerns. No BM yet.Has been using incentive spirometry aggressively. OBJECTIVE: Vital Signs Period Temp Pulse Resp BP Sys/Dang Pulse Ox Last 24 Hr 97.8 F-99.2 F 100-123 20-20 115-143/78-92 100 Intake & Output 02/04/18 02/05/18 02/06/18 02/07/18 23:59 23:59 23:59 23:59 Intake Total 1850 1908 300 120 Output Total 645 1190 404 Balance 1205 718 -104 120 general: sitting in bed in no acute distress Neck: C-spine collar Chest: CTAB, no rales or wheezing Abdomen:soft, obese, NT, ND, positive bowel sounds Extremities: no edema Home Medication List Medication Instructions Recorded Confirmed Type Gabapentin 300 mg PO TID 02/04/18 02/04/18 History Active Medications Generic Name Dose Route Start Last Admin Trade Name Freq PRN Reason Stop Dose Admin Acetaminophen 650 mg 02/04/18 14:15 02/06/18 09:46 Tylenol - PO 650 mg Q6H PRN Administration PAIN LEVEL 1 - 3 Acetaminophen 325 mg 02/06/18 13:14 02/07/18 11:10 Tylenol - PO 02/09/18 13:13 325 mg Q4H PRN Administration PAIN 7-10 Amitriptyline HCl 50 mg 02/04/18 22:00 02/06/18 21:38 Elavil - PO 50 mg HS ESTEFANI Administration Benzocaine/Menthol 1 each 02/05/18 11:34 02/07/18 11:12 Cepacol Lozenge - MM 1 each PRN PRN Administration SORE THROAT Diazepam 1 mg 02/05/18 09:55 02/06/18 14:48 Valium - PO 1 mg Q8H PRN Administration MUSCLE SPASMS Docusate Sodium 100 mg 02/05/18 10:00 02/07/18 09:44 Colace Liquid - PO 100 mg BID ESTEFANI Administration Gabapentin 400 mg 02/04/18 22:00 02/06/18 21:38 Neurontin - PO 400 mg TID ESTEFANI Administration Heparin Sodium (Porcine) 5,000 unit 02/04/18 16:30 02/06/18 21:38 Heparin - SQ 5,000 unit TID ESTEFANI Administration Ondansetron HCl 4 mg 02/05/18 11:34 02/07/18 02:53 Zofran Odt - SL 4 mg Q6H PRN Administration NAUSEA AND/OR VOMITING Oxycodone HCl 2.5 mg 02/05/18 09:46 Roxicodone - PO Q4H PRN PAIN LEVEL 4 - 6 Oxycodone HCl 5 mg 02/06/18 13:14 02/07/18 11:11 Roxicodone - PO 5 mg Q4H PRN Administration PAIN 7-10 Polyethylene Glycol 17 gm 02/05/18 09:49 02/06/18 09:47 Miralax (For Daily Use) - PO 17 grams DAILY PRN Administration CONSTIPATION Senna 8.8 mg 02/05/18 22:00 02/06/18 21:39 Senna Oral Solution - PO 8.8 mg HS ESTEFANI Administration Laboratory Results - last 24 hr 02/06/18 02/07/18 02/07/18 17:20 07:00 07:00 WBC 16.3 H RBC 6.10 H Hgb 11.7 Hct 36.8 MCV 60.4 L MCH 19.2 L MCHC 31.8 L RDW 15.1 Plt Count 233 MPV 8.4 D Neutrophils % 79.4 Lymphocytes % 13.4 D Monocytes % 6.1 Eosinophils % 0.7 D Basophils % 0.4 Nucleated RBC % 0 Platelet Estimate Adequate Platelet Comment No clotting detected Polychromasia 1+ Anisocytosis 2+ Microcytosis 2+ Sodium 136 Potassium 3.8 Chloride 101 Carbon Dioxide 28 Anion Gap 7 L BUN 16 Creatinine 1.1 Creat Clearance w eGFR > 60 Random Glucose 98 Calcium 8.5 Phosphorus 3.3 Magnesium 2.3 Total Bilirubin 1.0 AST 9 L D ALT 18 Alkaline Phosphatase 58 Total Protein 7.2 Albumin 3.5 Urine Color Yellow Urine Appearance Clear Urine pH 5.0 Ur Specific [place] 1.020 Urine Protein Negative Urine Glucose (UA) Negative Urine Ketones Negative Urine Blood 1+ H Urine Nitrite Negative Urine Bilirubin Negative Urine Urobilinogen Negative Ur Leukocyte Esterase Negative Urine WBC (Auto) 2 Urine RBC (Auto) 1 Urine Mucus Rare Microbiology 02/06/18 11:37 Blood - Peripheral Venous Blood Culture - Preliminary NO GROWTH OBTAINED AFTER 24 HOURS, INCUBATION TO CONTINUE FOR 4 DAYS. 02/06/18 11:15 Blood - Peripheral Venous Blood Culture - Preliminary NO GROWTH OBTAINED AFTER 24 HOURS, INCUBATION TO CONTINUE FOR 4 DAYS. CXR - neg for acute process ASSESSMENT AND PLAN: 42 yom with no significant PMHx here with Cervical radiculopathy s/p C5/6 corpectomy, decompression, fusion 02/04 -Cervical radiculopathy C5/6 corpectomy, decompression, fusion 02/04/2018 -SIRS, ?Atelectasis, r/o infectious process -Uncontrolled HTN, likely pain response and severe anxiety -Anxiety Plan: S/p C5/6 corpectomy, decompression, fusion 02/05 Drain removed. Pain control with oxycodone. PT eval noted, plan for home vs outpatient PT. No further fevers, CXR, ua, blood cx neg, doing well. Encourage incentive spirometry and ambulation. HOld off on antibiotics for now. Repeat CBC later today. Bowel regimen. Dispo planning likely home with services later today or tomorrow pending repeat CBC if no new concerns. Plan discussed with patient in detail, encouraged OOB and incentive spiromety. Also discussed with social work, possible home with PT/VNS in 24 hours.
[2018-02-07] MEDS: GABAPENTIN 400 MG CAPSULE (FP) PO SCH (13:40)
[2018-02-07] MEDS: HEPARIN NA (PORCINE) 5,000 UNITS/ML 1ML VIAL SQ SCH (13:42)
--- NOTE | 2018-02-07 14:35 | PN ---
Physical Exam: SUBJECTIVE: Patient seen and examined at bedside. Pt continues to complain of pain at the surgical site. States his previous symptoms are relieved. OBJECTIVE: Vital Signs Period Temp Pulse Resp BP Sys/Dang Pulse Ox Last 24 Hr 98.0 F-99.2 F 100-123 20-20 115-143/78-92 100 GENERAL: The patient is awake, alert, and fully oriented, in no acute distress. HEAD: Normal with no signs of trauma. EYES: extraocular movements intact, sclera anicteric, conjunctiva clear. No ptosis. ENT: oropharynx clear without exudates, moist mucous membranes. NECK: Pt in C-collar. Neck movement restricted. LUNGS: Breath sounds equal, clear to auscultation bilaterally, no wheezes, no crackles, no accessory muscle use. HEART: Regular rate and rhythm, S1, S2 without murmur, rub or gallop. ABDOMEN: Soft, nontender, nondistended, normoactive bowel sounds, no guarding, no rebound, no hepatosplenomegaly, no masses. EXTREMITIES: 2+ pulses, warm, well-perfused, no edema. NEUROLOGICAL: Cranial nerves II through XII grossly intact. Left needle loom tender(4/5) stronger than on admission, but weaker than right (5/5). Normal speech, gait not observed. PSYCH: Normal mood, normal affect. SKIN: Warm, dry, normal turgor, no rashes or lesions noted Laboratory Results - last 24 hr 02/06/18 02/07/18 02/07/18 17:20 07:00 07:00 WBC 16.3 H RBC 6.10 H Hgb 11.7 Hct 36.8 MCV 60.4 L MCH 19.2 L MCHC 31.8 L RDW 15.1 Plt Count 233 MPV 8.4 D Neutrophils % 79.4 Lymphocytes % 13.4 D Monocytes % 6.1 Eosinophils % 0.7 D Basophils % 0.4 Nucleated RBC % 0 Platelet Estimate Adequate Platelet Comment No clotting detected Polychromasia 1+ Anisocytosis 2+ Microcytosis 2+ Sodium 136 Potassium 3.8 Chloride 101 Carbon Dioxide 28 Anion Gap 7 L BUN 16 Creatinine 1.1 Creat Clearance w eGFR > 60 Random Glucose 98 Calcium 8.5 Phosphorus 3.3 Magnesium 2.3 Total Bilirubin 1.0 AST 9 L D ALT 18 Alkaline Phosphatase 58 Total Protein 7.2 Albumin 3.5 Urine Color Yellow Urine Appearance Clear Urine pH 5.0 Ur Specific [place] 1.020 Urine Protein Negative Urine Glucose (UA) Negative Urine Ketones Negative Urine Blood 1+ H Urine Nitrite Negative Urine Bilirubin Negative Urine Urobilinogen Negative Ur Leukocyte Esterase Negative Urine WBC (Auto) 2 Urine RBC (Auto) 1 Urine Mucus Rare Active Medications Generic Name Dose Route Start Last Admin Trade Name Freq PRN Reason Stop Dose Admin Acetaminophen 650 mg 02/04/18 14:15 02/06/18 09:46 Tylenol - PO 650 mg Q6H PRN Administration PAIN LEVEL 1 - 3 Acetaminophen 325 mg 02/06/18 13:14 02/07/18 11:10 Tylenol - PO 02/09/18 13:13 325 mg Q4H PRN Administration PAIN 7-10 Amitriptyline HCl 50 mg 02/04/18 22:00 02/06/18 21:38 Elavil - PO 50 mg HS ESTEFANI Administration Benzocaine/Menthol 1 each 02/05/18 11:34 02/07/18 11:12 Cepacol Lozenge - MM 1 each PRN PRN Administration SORE THROAT Diazepam 1 mg 02/05/18 09:55 02/06/18 14:48 Valium - PO 1 mg Q8H PRN Administration MUSCLE SPASMS Docusate Sodium 100 mg 02/05/18 10:00 02/07/18 09:44 Colace Liquid - PO 100 mg BID ESTEFANI Administration Gabapentin 400 mg 02/04/18 22:00 02/07/18 13:40 Neurontin - PO 400 mg TID ESTEFANI Administration Heparin Sodium (Porcine) 5,000 unit 02/04/18 16:30 02/07/18 13:42 Heparin - SQ 5,000 unit TID ESTEFANI Administration Ondansetron HCl 4 mg 02/05/18 11:34 02/07/18 02:53 Zofran Odt - SL 4 mg Q6H PRN Administration NAUSEA AND/OR VOMITING Oxycodone HCl 2.5 mg 02/05/18 09:46 Roxicodone - PO Q4H PRN PAIN LEVEL 4 - 6 Oxycodone HCl 5 mg 02/06/18 13:14 02/07/18 11:11 Roxicodone - PO 5 mg Q4H PRN Administration PAIN 7-10 Polyethylene Glycol 17 gm 02/05/18 09:49 02/06/18 09:47 Miralax (For Daily Use) - PO 17 grams DAILY PRN Administration CONSTIPATION Senna 8.8 mg 02/05/18 22:00 02/06/18 21:39 Senna Oral Solution - PO 8.8 mg HS ESTEFANI Administration ASSESSMENT/PLAN: Pt is a 42 y/o M with no PMH who presents with sympomatic cervical spinal stenosis diagnosed on out pt MRI. #Spinal stenosis -(02/04/2018) C5/6 corpectomy, decompression, fusion -Incentive spirometry -Post-op leukocytosis unresolved as of yet. r/o infection -drain removed yest -Valium, Oxycodone, Tylenol, Gabapentin -Cont amytriptiline -Repeat CBC later today -Bowel regimen #HTN -? 2/2 pain and anxiety -currently controlled #Anxiety -Valium #FEN -NS @ 100 -lytes wnl -NPO #PPx -Hep SubQ #Dispo -For surg tomorrow Anuj Nelson MD PGY-1 IM Visit type - Emergency Visit Emergency Visit: No - New Patient This patient is new to me today: No - Critical Care Critical Care patient: No - Discharge Referral Referred to [facility] Med P.C.: No
[2018-02-07 14:50] LABS: BASO % 0.7 % (0-2.0); HEMATOCRIT 35.4 % (35.4-49); LYMPH % 18.9 % (8-40); MEAN CELL VOLUME 59.7 fl (80-96); MEAN PLT VOLUME 7.9 fl (7.5-11.1); MONO % 7.4 % (3.8-10.2); PLATELET COUNT 226 K/MM3 (134-434); RBC 5.93 M/mm3 (4.00-5.60); RDW 14.8 % (11.9-15.9); WHITE BLOOD COUNT 14.7 K/mm3 (4.0-10.0)
[2018-02-07 14:52] LABS: MCH 18.5 pg (25.7-33.7)
[2018-02-07] MEDS: diazePAM 2 MG TABLET PO PRN (15:42)
[2018-02-07 15:46] VITALS: BP 142/90; PULSE 131; TEMP 98.6
--- NOTE | 2018-02-07 16:24 | DS ---
Physical Exam: SUBJECTIVE: Patient seen and examined at bedside. Pt continues to complain of pain at the surgical site. States his previous symptoms are relieved. OBJECTIVE: Vital Signs Period Temp Pulse Resp BP Sys/Dang Pulse Ox Last 24 Hr 98.0 F-99.2 F 100-131 20-20 115-143/78-92 100 PHYSICAL EXAM GENERAL: The patient is awake, alert, and fully oriented, in no acute distress. HEAD: Normal with no signs of trauma. EYES: extraocular movements intact, sclera anicteric, conjunctiva clear. No ptosis. ENT: oropharynx clear without exudates, moist mucous membranes. NECK: Pt in C-collar. Neck movement restricted. LUNGS: Breath sounds equal, clear to auscultation bilaterally, no wheezes, no crackles, no accessory muscle use. HEART: Regular rate and rhythm, S1, S2 without murmur, rub or gallop. ABDOMEN: Soft, nontender, nondistended, normoactive bowel sounds, no guarding, no rebound, no hepatosplenomegaly, no masses. EXTREMITIES: 2+ pulses, warm, well-perfused, no edema. NEUROLOGICAL: Cranial nerves II through XII grossly intact. Left manager process excellence(4/5) stronger than on admission, but weaker than right (5/5). Seems trepidacious. Normal speech, gait not observed. PSYCH: Normal mood, normal affect. SKIN: Warm, dry, normal turgor, no rashes or lesions noted LABS Laboratory Results - last 24 hr 02/06/18 02/07/18 02/07/18 17:20 07:00 07:00 WBC 16.3 H RBC 6.10 H Hgb 11.7 Hct 36.8 MCV 60.4 L MCH 19.2 L MCHC 31.8 L RDW 15.1 Plt Count 233 MPV 8.4 D Neutrophils % 79.4 Lymphocytes % 13.4 D Monocytes % 6.1 Eosinophils % 0.7 D Basophils % 0.4 Nucleated RBC % 0 Platelet Estimate Adequate Platelet Comment No clotting detected Polychromasia 1+ Anisocytosis 2+ Microcytosis 2+ Sodium 136 Potassium 3.8 Chloride 101 Carbon Dioxide 28 Anion Gap 7 L BUN 16 Creatinine 1.1 Creat Clearance w eGFR > 60 Random Glucose 98 Calcium 8.5 Phosphorus 3.3 Magnesium 2.3 Total Bilirubin 1.0 AST 9 L D ALT 18 Alkaline Phosphatase 58 Total Protein 7.2 Albumin 3.5 Urine Color Yellow Urine Appearance Clear Urine pH 5.0 Ur Specific [place] 1.020 Urine Protein Negative Urine Glucose (UA) Negative Urine Ketones Negative Urine Blood 1+ H Urine Nitrite Negative Urine Bilirubin Negative Urine Urobilinogen Negative Ur Leukocyte Esterase Negative Urine WBC (Auto) 2 Urine RBC (Auto) 1 Urine Mucus Rare 02/07/18 14:25 WBC 14.7 H RBC 5.93 H Hgb 11.0 L Hct 35.4 MCV 59.7 L MCH 18.5 L MCHC 31.0 L RDW 14.8 Plt Count 226 MPV 7.9 Neutrophils % 72.0 Lymphocytes % 18.9 D Monocytes % 7.4 Eosinophils % 1.0 Basophils % 0.7 Nucleated RBC % 0 Platelet Estimate Platelet Comment Polychromasia Anisocytosis Microcytosis Sodium Potassium Chloride Carbon Dioxide Anion Gap BUN Creatinine Creat Clearance w eGFR Random Glucose Calcium Phosphorus Magnesium Total Bilirubin AST ALT Alkaline Phosphatase Total Protein Albumin Urine Color Urine Appearance Urine pH Ur Specific [place] Urine Protein Urine Glucose (UA) Urine Ketones Urine Blood Urine Nitrite Urine Bilirubin Urine Urobilinogen Ur Leukocyte Esterase Urine WBC (Auto) Urine RBC (Auto) Urine Mucus HOSPITAL COURSE: Date of Admission:02/03/18 Date of Discharge: 02/07/18 Pt is a 42 y/o M with no PMH who presents with sympomatic cervical spinal stenosis diagnosed on out pt MRI. He experienced bruning and shocking pain as well as weakness in LUE & LLE. Pt had C5/6 corpectomy, decompression, fusion (02/04/2018) by Dr. Baxter. He was given Valium, Oxycodone, Tylenol, Gabapentin post op. Pt developed low-grade fever and leukocytosis post op. Leukocytosis seemed like it might persist raising the question of possible infectious etiology. However, before any abx were given, leukocytosis began to resolve, and low-grade fever subsided. Pt had intermittent HTN in the hospital. It was thought to be secondary to pain and anxiety. It was controlled. Pt was very anxious and was given Valium. Pt currently stable for d/c home with pain medication. Minutes to complete discharge: 30 Discharge Summary Reason For Visit: HERNIATION OF INTERVERTEBRAL DISC OF CERVICAL REG Current Active Problems Cervical disc herniation (Acute) Condition: Stable - Instructions Diet, Activity, Other Instructions: Your wound care instructions have been provided by Dr. Marks. Cover neck as instructed by him during shower. Wear Cervical neck collar 23 hours a day. Call His office tomorrow to schedule follow up on wound care and suture removal next week. Take narcotics only when in pain. Do not take if dizzy, sleepy or drowsy. Taper and discontinue as symptoms improved. Do not drive, operate heavy machinery or take important decisions alone while on these medications. Maintain aggressive bowel regimen while on narcotics. Advise to continue senna and colace as instructed. Take miralax powder if no bowel movement in 2 days. Incentive spirometry 10 times every hour as tolerated. You have been arranged for home physical therapy and visiting nurses. If you notice any fevers, chills, discharge, trouble breathing, new cough, pains , bleeding from wound, increased pain, weakness/tingling/numbness, call 911 or come to ED Your blood cultures were sent, preliminary results are currently negative. However final results take upto 5 days and you will be notified of any abnormal results. You can also have your doctor's office follow up on results in 2 days. Referrals: Jay Baxter MD, [facility] [Staff Physician] - Disposition: VNS/HOME HEALTH CARE - Home Medications Comprehensive Discharge Medication List: Ambulatory Orders Gabapentin 300 mg PO TID 02/04/18 Acetaminophen [Tylenol .Regular Strength -] 650 mg PO Q6H PRN #24 tablet Amitriptyline HCl [Elavil -] 50 mg PO HS 02/07/18 Amitriptyline HCl [Elavil -] 50 mg PO HS tablet 02/07/18 Polyethylene Glycol 3350 [Miralax 119 gm Btl -] 17 gm PO DAILY PRN #1 bottle Sennosides/Docusate Sodium [Senna-Docusate Sodium Tablet] 1 each PO DAILY #7 tablet 02/07/18 Walker [Ultra-Light Rollator] 1 each MC DAILY #1 each 02/07/18 oxyCODONE HCL [Roxicodone -] 5 mg PO Q6H PRN 3 Days #15 tablet MDD 4 02/07/18 This patient is new to me today: No Emergency Visit: No Critical Care patient: No - Discharge Referral Referred to [facility] Med P.C.: No
== END 2018-02-07 17:16 | disposition home health service (06) | DRG 473 ==
LOC: JER 14:24 → JERBED 16:42 → J6S 19:50 → JSAMEDAYSX 02-04 12:52 → J8W 02-04 16:15
PROVIDERS: ADMIT Hospitalist; ATTEND Hospitalist
PROC: 0RG10AJ Fusion of Cervical Vertebral Joint with Interbody Fusion Device, Posterior Approach, Anterior Column, Open Approach (ICD-10-PCS; principal; 2018-02-04 10:00)
DX: M50.20 Other cervical disc displacement, unspecified cervical region (principal); I10 Essential (primary) hypertension; F41.9 Anxiety disorder, unspecified; M54.12 Radiculopathy, cervical region
CPT/HCPCS: 36415; 71045-TC-FY; 71046-TC-FY; 72125-TC; 76000-TC-FY; 80053; 81003; 81015; 83735; 84100; 85025; 85610; 85730; 86850; 86900; 86901; 87040; 87086; 93005; 93010; 94010; 94760; 97116-GP; 97161-GP; 99285-25; J0131; J1644; J7030; Q0162